=== PATIENT | female | born 2000 | race Caucasian/White ===

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

== ENCOUNTER 2022-09-17 17:29 | Emergency (ER) | payer OTHER, BC ==
[2022-09-17 18:05] VITALS: BP 110/60; PULSE 59; RESP 18; TEMP 98.1; BMI 23.8
== END 2022-09-17 19:11 | disposition home or self-care (01) ==
LOC: JERFT 17:29 → JER 17:29 → JERFT 19:11
DX: M54.2 Cervicalgia (principal); M25.512 Pain in left shoulder; M79.622 Pain in left upper arm; V89.2XXA Person injured in unspecified motor-vehicle accident, traffic, initial encounter
CPT/HCPCS: 99282-25